=== PATIENT | female | born 1975 | race Asian ===

== ENCOUNTER → 2020-01-08 | Outpatient (CLI) | payer OTHER, SELFPAY ==
[~2020-01-08] MED LIST: SERT-138 PO
== END ==
LOC: EDBD → M LABSMTC 13:44
PROVIDERS: ATTEND Family Medicine
DX: Z20.828 Contact with and (suspected) exposure to other viral communicable diseases (principal)
CPT/HCPCS: C9803; U0003

== ENCOUNTER 2020-03-05 10:31 | Inpatient (IN) | payer OTHER, SELFPAY ==
[~2020-03-05] VITALS: Ht 162.6 cm; Wt 81.8 kg
[2020-03-05 11:15] LABS: HEMATOCRIT 45.4 % (36.0-47.0); MEAN CORPUSCULAR HEMOGLOBIN 28.9 pg (27.0-33.0); MEAN CORPUSCULAR VOLUME 87.5 fl (80.0-96.0); PLATELET COUNT, AUTOMATED 361 10^3/uL (150-450); RED BLOOD COUNT 5.19 10^6/uL (4.00-5.40); WHITE BLOOD COUNT 9.6 10^3/uL (4.0-10.0)
[2020-03-05 11:39] LABS: HCG, SERUM QUALITATIVE NEGATIVE (NEGATIVE)
[2020-03-05 11:41] LABS: AMPHETAMINES LEVEL URINE NEGATIVE (NEGATIVE); BARBITURATES URINE NEGATIVE (NEGATIVE); BENZODIAZEPINES URINE NEGATIVE (NEGATIVE); CANNABINOIDS URINE POSITIVE (NEGATIVE); COCAINE METABOLITE URINE NEGATIVE (NEGATIVE); METHADONE URINE NEGATIVE (NEGATIVE); OPIATES URINE NEGATIVE (NEGATIVE); PHENCYCLIDINE URINE NEGATIVE (NEGATIVE)
[2020-03-05 11:47] LABS: ACETAMINOPHEN LEVEL < 2.0 UG/ML (10.0-30.0); ALBUMIN 4.2 GM/DL (3.2-5.2); ALT/SGPT 20 U/L (12-78); BILIRUBIN,DIRECT 0.1 MG/DL (0.0-0.2); BILIRUBIN,TOTAL 0.3 MG/DL (0.2-1.0); BLOOD UREA NITROGEN 11 MG/DL (7-18); CALCIUM LEVEL 9.7 MG/DL (8.5-10.1); CARBON DIOXIDE LEVEL 29 MEQ/L (21-32); CHLORIDE LEVEL 106 MEQ/L (98-107); CREATININE FOR GFR 0.72 MG/DL (0.55-1.30); ETHYL ALCOHOL (ETHANOL) < 0.003 % (0.000-0.010); GLOMERULAR FILTRATION RATE > 60.0 (>58); GLUCOSE, FASTING 94 MG/DL (70-100); POTASSIUM SERUM 4.7 MEQ/L (3.5-5.1); SALICYLATE LEVEL < 1.7 MG/DL (5.0-30.0); SODIUM LEVEL 138 MEQ/L (136-145); THYROID STIMULATING HORMONE 0.887 uIU/ML (0.358-3.740); TOTAL PROTEIN 8.2 GM/DL (6.4-8.2)
[2020-03-05] MEDS ORDERED: MAALOX 30 ML SUSP *UDC PO PRN (14:00)
[2020-03-05] MEDS ORDERED: IBUPROFEN 400 MG TAB PO PRN (14:00)
[2020-03-05] MEDS ORDERED: MOM 30ML SUSPENSION UDC PO PRN (14:00)
[2020-03-05 14:59] VITALS: BP 123/64
[2020-03-05] MEDS: traZODone 50 MG TAB PO PRN (22:42)
[2020-03-06 07:26] VITALS: BP 155/67
--- NOTE | 2020-03-06 10:28 | MHHPEPDOC ---
[facility] History & Physical History and Physical DATE OF ADMISSION: Mar 05, 2020 at 13:58 Subjective HPI: The patient a 24-year-old woman presents to [facility] after getting into a depressed state where she had wanted to drive her car off the road. She reported that she came in because she needed to get help, she reports losing multiple family members and feeling more anxious, having difficulty sleeping and eventually becoming very upset. She reports that she has felt a lot better since being admitted, she reports otherwise no other major changes in her life and screens negative for bipolar and psychotic disorders. MEDICAL/PSYCHIATRIC HISTORY: Denies any history of admission suicide attempts carports being diagnosed depression the past, was previously on sertraline 100 mg daily, but no longer has access to it as the provider had left [place] FAMILY HISTORY: . Denies SOCIAL HISTORY - OCCUPATION: dependent SOCIAL HISTORY - LIVING SITUATION: living with SOCIAL HISTORY- ADDICTION: Denies any addiction history Objective General: Well dressed with good hygiene Speech: Spontaneous and fluid Thought processes: Linear and logical Thought content: Future orientated Abstract reasoning, and computation: Intact Description of associations: Intact Description of abnormal or psychotic thoughts:Denies any suicidal or homicidal ideation. Denies any auditory or visual hallucinations. Does not appear to be responding to internal stimuli. Does not appear to be endorsing any bizarre or paranoid ideation. Judgment: fair Insight: fair Orientation: Alert and orientated 3 Recent and remote memory: Intact Attention span and concentration: Intact Fund of knowledge: Adequate Mood: "okay" Affect: Euthymic with a full range Assessment Adjustment disorder with disruption of mood conduct Plan Resume sertraline 100 mg daily, observed overnight to determine if she meet criteria for extension Treatment priorities are 1. Risk for suicide 2.. Ineffective coping Stay for 1-2 days. Vital Signs Vital Signs Date Time Temp Pulse Resp B/P (MAP) Pulse Ox O2 Delivery O2 Flow Rate FiO2 03/06/20 07:26 90.0 90 16 155/67 (96) Room Air 03/05/20 14:59 98 Laboratory Data 24H Labs Laboratory Tests 2 03/05/20 10:58: Nucleated Red Blood Cells % (auto) 0.0, Anion Gap 3L, Glomerular Filtration Rate > 60.0, Calcium Level 9.7, Total Bilirubin 0.3, Direct Bilirubin 0.1, Aspartate Amino Transf (AST/SGOT) 23, Alanine Aminotransferase (ALT/SGPT) 20, Alkaline Phosphatase 73, Total Protein 8.2, Albumin 4.2, Albumin/Globulin Ratio 1.1L, Thyroid Stimulating Hormone (TSH) 0.887, Human Chorionic Gonadotropin, Qual NEGATIVE, Salicylates Level < 1.7L, Urine Opiates Screen NEGATIVE, Urine Methad one Screen NEGATIVE, Acetaminophen Level < 2.0L, Urine Barbiturates Screen NEGATIVE, Urine Phencyclidine Screen NEGATIVE, Urine Amphetamines Screen NEGATIVE, Urine Benzodiazepines Screen NEGATIVE, Urine Cocaine Metabolite Screen NEGATIVE, Urine Cannabinoids Screen POSITIVEH, Ethyl Alcohol Level < 0.003 CBC/BMP Laboratory Tests 03/05/20 10:58 Medications Scheduled Sertraline HCl (Sertraline HCl) 100 Mg Tablet, 100 MG PO DAILY for mood Allergies Coded Allergies: No Known Allergies (Unverified , 03/05/20) TRICIA BRICE DO Mar 06, 2020 10:28
[2020-03-06] MEDS ORDERED: SERTRALINE 100 MG TAB PO ONE (12:15)
--- NOTE | 2020-03-06 14:32 | HPEPDOC ---
[facility] Medical History & Physical Date of Admission Mar 06, 2020 Date of Service: Mar 06, 2020 History and Physical Chief complaint: Who presented to the hospital after experiencing suicidal thoughts History of present illness: Patients 44-year-old female with a past medical history of anxiety and insomnia who is presented to the emergency room after experiencing suicidal thoughts. Patient was admitted to the inpatient mental health unit under the care of psychiatry. Hospitalist service was consulted for medical screening evaluation. Patient reports a mild headache and occasional nausea. She denies any vomiting, chest pain, shortness breath, palpitations, abdominal pain, constipation, diarrhea, or urinary discomfort or any recent fevers, chills. Patient reports her appetite has been poor and her weight has been fluctuating. Past Medical History: Anxiety, insomnia Past Surgical History: No prior surgeries Allergies: See below Medications: See below Family History: - No history of malignancies Social History: - Denies the use of alcohol, tobacco or illicit drugs - Denies recent travel or sick contacts - Lives with and son - Occupation; patient reports that she works at the [employer] Review of Systems: 10 point review of systems complete, all negative otherwise stated in HPI Physical exam: - Vitals: BP [123/64], HR [75], RR [16], Sat [98%RA], Temp [98.4F] - General: Lying in bed, No acute distress, AAOx3 - HEENT: NC, AT, PERRLA - CVS: RRR, +S1S2 - Lungs: Fair air entry bilaterally, No appreciable wheezing / rales / rhonchi - Abdomen: Soft, Non-distended, Non-tender - Extremities: No lower extremity edema, No calf tenderness - Neuro: No focal motor or sensory deficit - Skin: No visible rashes Assessment and Plan: Suicidal ideation - History of insomnia and anxiety - Patient presented to the emergency room with suicidal ideation - Was admitted to the inpatient mental health unit under the care of psychiatry - Currently being managed by psychiatry No significant past medical history DVT prophylaxis - Will continue with early ambulation 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 Hospital service will now sign off, please reconsult as needed Vital Signs Vital Signs Date Time Temp Pulse Resp B/P (MAP) Pulse Ox O2 Delivery O2 Flow Rate FiO2 03/06/20 07:26 90.0 90 16 155/67 (96) Room Air 03/05/20 14:59 98 Home Medications No Active Prescriptions or Reported Meds Allergies Coded Allergies: No Known Allergies (Unverified , 03/05/20) BRANDIE GAR MD Mar 06, 2020 14:32
[2020-03-06 19:12] VITALS: BP 130/76
[2020-03-06] MEDS: traZODone 50 MG TAB PO PRN (21:13)
[2020-03-07 06:18] VITALS: BP 111/59
[2020-03-07] MEDS ORDERED: SERTRALINE 100 MG TAB PO SCH (09:00)
[2020-03-07] MEDS ORDERED: SERT-138 PO (11:42)
--- NOTE | 2020-03-07 12:30 | MHDSPDOC ---
[facility] Discharge Summary Discharge Summary DATE OF ADMISSION: Mar 05, 2020 at 13:58 DATE OF DISCHARGE: Mar 07, 2020 at 12:25 DISCHARGE DIAGNOSES: Other depressive disorder CONSULTANTS INVOLVED:[ None (basic hospitalist screening)] REASON FOR ADMISSION & TREATMENT AND PROGRESS ON THE UNIT : . The patient was admitted to the inpatient mental health unit, she had not been on her sertraline and some time and had significant depressive symptoms. She reported having multiple stressors that led to her admission. She was resumed on 100 mg of Zoloft where she did quite well improved without major incident and did not require extension on her involuntary admission. She was amenable friendly and demonstrate good insight into the situation that brought her in. DISCHARGE ASSESSMENT[improved] Legal status considerations: The patient at the time of discharge did not meet criteria for involuntary admission/extension due to having a [normal] mental status exam, [fair] insight into the situation, They are engaged in the discharge process, as well as being friendly and amenable in behavioral control and havent been engaging in any observed concerning behavior or ideation recently. They decline voluntary extension/admission at this time and must be discharged in good hernan, as Im unable to make a case for holding the patient against their will. They may have historical risk factors of admissions and other interactions with psychiatry however, those are not modifiable from a clinical perspective. The patient will need to be discharged in good hernan. MENTAL STATUS EXAMINATION ON DISCHARGE: [General: Well dressed with good hygiene Speech: Spontaneous and fluid Thought processes: Linear and logical Thought content: Future orientated Abstract reasoning, and computation: Intact Description of associations: Intact Description of abnormal or psychotic thoughts:Denies any suicidal or homicidal ideation. Denies any auditory or visual hallucinations. Does not appear to be responding to internal stimuli. Does not appear to be endorsing any bizarre or paranoid ideation. Judgment: fair Insight: fair Orientation: Alert and orientated 3 Recent and remote memory: Intact Attention span and concentration: Intact Fund of knowledge: Adequate Mood: "okay" Affect: Euthymic with a full range] PLAN/FOLLOWUP ARRANGEMENTS: Follow up appointments made (PCP and MH in 5 days of D/C date) and safety plan completed. Safety Planning aspects completed prior to discharge [Medication supplies limited to 7 days with 4 refills to prevent accumulation to OD] [Family contact completed, educated on safe practices, instructed on removal and mitigation of dangerous means] [RN reviewed crisis hotline information and other aspects to empower patient to access care in interim before next appointment.] The amount of time spent in the coordination of care for this patient was approximately 30 minutes. Vital Signs/I&Os Vital Signs Date Time Temp Pulse Resp B/P (MAP) Pulse Ox O2 Delivery O2 Flow Rate FiO2 03/07/20 06:18 97.7 64 12 111/59 (76) Room Air 03/05/20 14:59 98 Medications Scheduled Sertraline HCl (Sertraline HCl) 100 Mg Tablet, 100 MG PO DAILY for mood for 7 Days, #7 Allergies Coded Allergies: No Known Allergies (Unverified , 03/05/20) TRICIA BRICE DO Mar 07, 2020 12:30
== END 2020-03-07 12:25 | disposition home or self-care (01) | DRG 885 ==
LOC: M ED 10:31 → EDBD 13:58 → M ED INP 13:58 → M PSY 14:50
PROVIDERS: ADMIT Psychiatry & Neurology Addiction Medicine; ATTEND Psychiatry & Neurology Addiction Medicine
DX: F32.89 Other specified depressive episodes (principal); R45.851 Suicidal ideations; F41.9 Anxiety disorder, unspecified; G47.00 Insomnia, unspecified